=== PATIENT | female | born 1965 | race Caucasian/White ===

== ENCOUNTER 2021-07-16 18:08 | Emergency (ER) | payer SELFPAY ==
[~2021-07-16] VITALS: Ht 167.6 cm; Wt 113.4 kg
[2021-07-16] MEDS ORDERED: ZOFRAN4 MG SL (18:19)
[2021-07-16] MEDS ORDERED: TESSALON PERLE100 MG PO (18:19)
== END 2021-07-16 18:45 | disposition home or self-care (01) ==
LOC: ER 18:16
DX: R05 Cough (principal); U07.1 COVID-19
CPT/HCPCS: 99283